=== PATIENT | female | born 1935 | race Caucasian/White ===

== ENCOUNTER 2021-09-19 02:38 | Inpatient (IN) | payer OTHER, BC, SELFPAY ==
[~2021-09-19] VITALS: Ht 170.2 cm; Wt 90.7 kg
[2021-09-19 02:45] VITALS: BP_SYST 161
--- NOTE | 2021-09-19 02:45 | NUR ---
Patient to ER bed 02 to gown for evaluation. Side rails up. Report given to ALEXIA HARRISON
--- NOTE | 2021-09-19 02:48 | NUR ---
Received report from direct support staff member Natalee that new pt in room ED2 for infected knee alceration s/p ground level fall approx 1 month ago. Wound just inferior to Lt knee on anterior surface looks very much infected due to the swellng, redness, discoloration, pus formation, heat to touch. Pt is AAOx4, with good color and temp. VSS, SBP slightly elevated in the 150s-160s, PE wnl, strong and reg pulses x 2, faint distal pulses in LE due to 3+ pitting pedal edema, good cms though. Pt denies any pain, sob, n/v, fv, or discomfort. No s/sx of distress present.
--- NOTE | 2021-09-19 02:55 | NUR ---
Pt connected to bedside monitor, VSS, SBP elevated, EDMD at bedside for eval of pt condition. EDMD confirmed that Lt knee wound is infected, swollen, full of pus and needs to I&Ded by a surgeon. EDMD at this time said that she would be admitted into hospital for I&D of lt knee wound and abx therapy.
[2021-09-19] MEDS ORDERED: VANCOMYCIN HCL 1,000 MG in NS 250 ML IV ONE (03:15)
[2021-09-19] MEDS ORDERED: CLINDAMYCIN 900 mg/50mL D5W 50 ML IV ONE (03:15)
--- NOTE | 2021-09-19 03:15 | NUR ---
Started IV on Rt hand without difficulty using 24g angio , malena blood for lab tests and secured IV site. started IV abx therapy. Pt complaining of back pain due to gurney being too uncomfortable, nose swapped for rapid covid test. Will call for bed after test is resulted from lab. Pt offered pillow and 2 blankets. Sh wcxepted
[2021-09-19] MEDS ORDERED: VANCOMYCIN HCL 1000 MG/VIAL IV ONE (04:08)
[2021-09-19 04:57] LABS: BASOPHILS % (AUTO) 0.6 % (0.0-2.0); EOSINOPHILS % (AUTO) 0.8 % (0.0-4.0); HEMATOCRIT 38.1 % (36-48); HEMOGLOBIN 11.8 g/dL (12.0-16.0); LYMPHOCYTES # (AUTO) 1.1 K/uL (1.0-5.5); LYMPHOCYTES % (AUTO) 22.9 % (20.5-51.5); MEAN CORPUSCULAR HEMOGLOBIN 25 pg (27-31); MEAN CORPUSCULAR HGB CONC 31 % (32-36); MEAN CORPUSCULAR VOLUME 79 fL (79.0-98.0); MONOCYTES # (AUTO) 0.4 K/uL (0.0-1.0); MONOCYTES % (AUTO) 7.6 % (1.7-9.3); NEUTROPHILS # (AUTO) 3.4 K/uL (1.8-7.7); NEUTROPHILS % (AUTO) 68.1 % (40.0-70.0); PLATELET COUNT (AUTO) 183 K/uL (130-430); RED BLOOD CELL COUNT(AUTO) 4.81 MIL/uL (4.2-6.2); RED CELL DISTRIBUTION WIDTH 18.4 % (9.0-15.0)
[2021-09-19 05:03] LABS: ANION GAP 8 (5-15); CALCIUM 8.4 mg/dL (8.4-11.0); CHLORIDE 108 mmol/L (98-107); CREATININE 1.29 mg/dL (0.55-1.30); POTASSIUM 3.6 mmol/L (3.5-5.1); SODIUM SERUM 139 mmol/L (136-145); UREA NITROGEN, BLOOD 28 mg/dL (8-21)
[2021-09-19 05:08] LABS: ALANINE AMINOTRANSFERASE 24 U/L (12-78); ALBUMIN 2.6 g/dL (3.4-4.8); ASPARTATE AMINOTRANSFERASE 30 U/L (10-37)
[2021-09-19 05:21] LABS: GLUCOSE 50 mg/dL (70-99)
[2021-09-19] MEDS: NACL 0.9% 1,000 ML IV SCH ×2 (05:32→17:59)
--- NOTE | 2021-09-19 06:45 | NUR ---
Pt repositioned to pos of comfort. 2-3LO2 NC administered per pt request after complaining of being mildly to moderatly short of breath. Accucheck taken, BG=40, pt offered juice and crackers and apple sauce and jello, however, pt denied and said she will wait for breakfast to be served. Will keep an eye out for breakfast tray.
[2021-09-19] MEDS ORDERED: POTASSIUM CHLORIDE 20 MEQ TAB.PRT.SR PO PRN (07:15)
[2021-09-19] MEDS ORDERED: ONDANSETRON HCL 4 MG/2 ML VIAL IVP PRN (07:15)
[2021-09-19] MEDS ORDERED: DOCUSATE SODIUM 100 MG CAPSULE PO PRN (07:15)
[2021-09-19] MEDS ORDERED: MUPIROCIN 2% TOPICAL OINTMENT 22 GM NS PRN (07:15)
[2021-09-19] MEDS ORDERED: LORazepam 2 MG/ML VIAL IVP PRN (07:15)
[2021-09-19] MEDS ORDERED: ACETAMINOPHEN 325 MG TABLET PO PRN (07:15)
[2021-09-19] MEDS ORDERED: MAGNESIUM SULFATE 50 ML IV PRN (07:15)
--- NOTE | 2021-09-19 07:30 | NUR ---
reported pts. accu check 40, pt. AAOX4, states ussually low in am, apple juice given and breakfast tray ordered, POC for today discussed, pt. has only mild pain to left leg, BLE have ptitting edema unable to palpate pedal pulse, feet warm able to move toes and has good sensation
--- NOTE | 2021-09-19 08:15 | NUR ---
accu check 64
[2021-09-19] MEDS: HEPARIN SODIUM,PORCINE 5,000 UNITS/ML VIAL SUBCUT SCH ×2 (09:00→20:58)
[2021-09-19] MEDS: METOPROLOL TARTRATE 25 MG TABLET PO SCH ×2 (09:30→20:44)
--- NOTE | 2021-09-19 09:33 | NUR ---
heparin held no PTT results
[2021-09-19] MEDS ORDERED: VITD400 PO (10:13)
[2021-09-19] MEDS ORDERED: INSU100V SQ (10:13)
[2021-09-19] MEDS ORDERED: FURO-149 PO (10:13)
[2021-09-19] MEDS ORDERED: SACU1TAB PO (10:13)
[2021-09-19] MEDS ORDERED: INSU3INS10 SQ (10:13)
[2021-09-19] MEDS ORDERED: APIX5TAB PO (10:13)
[2021-09-19] MEDS ORDERED: POTA8TAB66 PO (10:13)
[2021-09-19] MEDS ORDERED: CARV12.548 PO (10:13)
--- NOTE | 2021-09-19 10:13 | NUR ---
Medication reconciliation completed with information provided by Christy. Any prior medication reconciliation on file was reviewed and corrected.
--- NOTE | 2021-09-19 10:40 | NUR ---
Patient will be admitted to care of Dr. Muñoz. Admitted to med surg unit. Will go to room 124C. Belongings list completed. Complete and up to date summary report printed. SBAR report given at bedside with Leland opportunity for questions.
[2021-09-19 11:10] VITALS: BP_SYST 152
--- NOTE | 2021-09-19 11:10 | NUR ---
PATIENT ADMITTED THRU ER, AWAKE, ALERT, ORIENTED X 3 TO NAME, PERSON, AND PLACE. RESPIRATION EVEN AND UNLABORED NO S/S OF ANY ACUTE DISTRESS NOTED. ABLE TO VERBALIZE NEEDS NO C/O ANY PAIN OR DISCOMFORT NOTED. ABDOMEN SOFT AND NON-DISTENDED, POSITIVE BOWEL SOUND X 4 NO N/V OR DIARRHEA NOTED. SKIN WARM AND DRY INTACT, LOWER EXTREMITIES EDEMA 2+ PITTING EDEMA, LEFT LEG SWOLLEN, RED, AND WARM TO TOUCH WITH SCAB OVER THE KNEECAP. WITH BILATERAL PEDAL PULSE PALPABLE.
--- NOTE | 2021-09-19 11:35 | NUR ---
CONSULTATION PAGED/CALLED Reason for Consultation: left knee abscess Person Who was Notified:robby Consulting Physician: dr. carla phillips Electrical Unit Rebuilder Specialty: ID Ordering Physician: jered
[2021-09-19 11:42] VITALS: BP_SYST 146
--- NOTE | 2021-09-19 11:46 | NUR ---
consults- Dr. Magana was aware of consults.
[2021-09-19 15:17] VITALS: BP_SYST 157
--- NOTE | 2021-09-19 18:42 | NUR ---
VS STABLE, AFEBRILE ,NO CHANGE IN LOC. TOLERATED PO WELL WITH FAIR APPETITE. LEFT KNEE REMAIN SWOLLEN W/O ANY DRAINAGE NOTED. CONSULTING MDS, CHAR ADRIAN, SAW THE PATIENT TODAY NO NEW ORDER @ THIS TIME. Addendum: 09/19/21 at 1847 by [employer] geographic information systems director INFECTIOUS DISEASE CONSULT WITH DR. SHIN NOT DR. LUNA HAD NOT SEEN PATIENT BUT WAS NOTIFIED.
--- NOTE | 2021-09-19 19:22 | NUR ---
ENDORSED PATIENT TO PM SHIFT NURSE.
[2021-09-20 00:30] VITALS: BP_SYST 116
[2021-09-20 04:00] VITALS: BP_SYST 139
[2021-09-20 07:28] LABS: BASOPHILS % (AUTO) 0.8 % (0.0-2.0); EOSINOPHILS % (AUTO) 0.1 % (0.0-4.0); HEMATOCRIT 37.5 % (36-48); HEMOGLOBIN 11.7 g/dL (12.0-16.0); LYMPHOCYTES % (AUTO) 21.5 % (20.5-51.5); MEAN CORPUSCULAR HEMOGLOBIN 25 pg (27-31); MEAN CORPUSCULAR HGB CONC 31 % (32-36); MEAN CORPUSCULAR VOLUME 80 fL (79.0-98.0); MONOCYTES # (AUTO) 0.3 K/uL (0.0-1.0); MONOCYTES % (AUTO) 6.2 % (1.7-9.3); NEUTROPHILS # (AUTO) 3.2 K/uL (1.8-7.7); NEUTROPHILS % (AUTO) 71.4 % (40.0-70.0); PLATELET COUNT (AUTO) 172 K/uL (130-430); RED BLOOD CELL COUNT(AUTO) 4.72 MIL/uL (4.2-6.2); WHITE BLOOD COUNT (AUTO) 4.5 K/uL (4.8-10.8)
[2021-09-20 07:33] LABS: INR 1.1 (0.8-1.2); PROTHROMBIN TIME 11.4 SECS (9.5-12.5)
[2021-09-20 07:43] LABS: ANION GAP 11 (5-15); CALCIUM 8.4 mg/dL (8.4-11.0); CHLORIDE 110 mmol/L (98-107); GLUCOSE 114 mg/dL (70-99); POTASSIUM 4.1 mmol/L (3.5-5.1); SODIUM SERUM 143 mmol/L (136-145); UREA NITROGEN, BLOOD 31 mg/dL (8-21)
[2021-09-20 07:47] LABS: ALANINE AMINOTRANSFERASE 22 U/L (12-78); ALBUMIN 2.8 g/dL (3.4-4.8); ASPARTATE AMINOTRANSFERASE 38 U/L (10-37); C-REACTIVE PROTEIN QUANT 3.4 mg/dL (0-0.5); LACTATE DEHYDROGENASE 382 U/L (81-234); TOTAL BILIRUBIN 1.3 mg/dL (0.0-1.0)
[2021-09-20 08:00] VITALS: BP_SYST 129
[2021-09-20 08:53] LABS: ERYTHROCYTE SEDIMENTATION RATE 8 MM/HR (0-20)
[2021-09-20] MEDS: METOPROLOL TARTRATE 25 MG TABLET PO SCH ×2 (09:05→20:45)
[2021-09-20] MEDS: MUPIROCIN 2% TOPICAL OINTMENT 22 GM TP SCH ×2 (09:06→21:00)
[2021-09-20] MEDS: HEPARIN SODIUM,PORCINE 5,000 UNITS/ML VIAL SUBCUT SCH ×2 (09:06→21:02)
--- NOTE | 2021-09-20 10:13 | NUR ---
Nutrition Update : Gaston Scale: 11 noted Pt admitted for Left Knee Abscess. Diet: [facility] BMI: 31.3 kg/m2 RD to follow per nutrition care standards.
[2021-09-20] MEDS ORDERED: VANCOMYCIN HCL 1 GM/NS PREMIX 250 ML IV ONE (11:00)
[2021-09-20 11:27] VITALS: BP_SYST 144
[2021-09-20] MEDS: NACL 0.9% 1,000 ML IV SCH ×2 (13:49→23:09)
[2021-09-20 15:32] VITALS: BP_SYST 126
[2021-09-20 19:26] VITALS: BP_SYST 159
[2021-09-21 03:51] VITALS: BP_SYST 159
[2021-09-21 07:36] LABS: BASOPHILS % (AUTO) 0.2 % (0.0-2.0); EOSINOPHILS % (AUTO) 0.1 % (0.0-4.0); HEMATOCRIT 41.6 % (36-48); HEMOGLOBIN 12.5 g/dL (12.0-16.0); LYMPHOCYTES # (AUTO) 1.2 K/uL (1.0-5.5); LYMPHOCYTES % (AUTO) 22.2 % (20.5-51.5); MEAN CORPUSCULAR HEMOGLOBIN 25 pg (27-31); MEAN CORPUSCULAR HGB CONC 30 % (32-36); MEAN CORPUSCULAR VOLUME 81 fL (79.0-98.0); MONOCYTES # (AUTO) 0.4 K/uL (0.0-1.0); MONOCYTES % (AUTO) 8.4 % (1.7-9.3); NEUTROPHILS # (AUTO) 3.7 K/uL (1.8-7.7); NEUTROPHILS % (AUTO) 69.1 % (40.0-70.0); PLATELET COUNT (AUTO) 189 K/uL (130-430); RED BLOOD CELL COUNT(AUTO) 5.12 MIL/uL (4.2-6.2); RED CELL DISTRIBUTION WIDTH 18.8 % (9.0-15.0); WHITE BLOOD COUNT (AUTO) 5.3 K/uL (4.8-10.8)
[2021-09-21 08:00] VITALS: BP_SYST 165
--- NOTE | 2021-09-21 08:00 | NUR ---
Handoff with ALEXIA Masters. Irineo Rodriguez RN
[2021-09-21 08:05] LABS: ANION GAP 13 (5-15); CALCIUM 8.5 mg/dL (8.4-11.0); CHLORIDE 108 mmol/L (98-107); CREATININE 1.66 mg/dL (0.55-1.30); GLUCOSE 152 mg/dL (70-99); POTASSIUM 4.8 mmol/L (3.5-5.1); SODIUM SERUM 143 mmol/L (136-145); UREA NITROGEN, BLOOD 40 mg/dL (8-21)
[2021-09-21] MEDS: MUPIROCIN 2% TOPICAL OINTMENT 22 GM TP SCH ×2 (09:00→21:00)
[2021-09-21] MEDS: HEPARIN SODIUM,PORCINE 5,000 UNITS/ML VIAL SUBCUT SCH ×2 (09:00→20:54)
[2021-09-21] MEDS: METOPROLOL TARTRATE 25 MG TABLET PO SCH ×2 (09:00→20:52)
[2021-09-21] MEDS: DECADRON 4 MG TABLET PO SCH (10:00)
--- NOTE | 2021-09-21 10:25 | NUR ---
GAVE PICC LINE ORDER TO ALEJANDRO, NURSING TRAINING REPRESENTATIVE
[2021-09-21] MEDS ORDERED: VANCOMYCIN HCL 1,000 MG in NS 250 ML IV SCH (11:00)
[2021-09-21 12:00] VITALS: BP_SYST 149
[2021-09-21] MEDS: NACL 0.9% 1,000 ML IV SCH (13:27)
[2021-09-21 19:36] VITALS: BP_SYST 82
[2021-09-21] MEDS: INSULIN REGULAR, HUMAN 100 UNITS/ML, 10 ML VIAL (humuLIN R) SUBCUT PRN (21:12)
[2021-09-22 00:39] VITALS: BP_SYST 143
[2021-09-22] MEDS ORDERED: AZITHROMYCIN 250 MG in NS 250 ML IV SCH (02:00)
[2021-09-22] MEDS ORDERED: AZITHROMYCIN 500 MG in NS 250 ML IV ONE (02:00)
[2021-09-22] MEDS: NACL 0.9% 1,000 ML IV SCH (03:45)
[2021-09-22] MEDS ORDERED: AZITHROMYCIN 500 MG/VIAL (ZITHROMAX) IV ONE (04:38)
[2021-09-22] MEDS ORDERED: cefTRIAXone 1 GM VIAL ONE (04:38)
--- NOTE | 2021-09-22 05:05 | NUR ---
PATIENT REMOVED 20 GAUGE PERIPHERAL IV ACCESS PLACED BY RANCHO PICC LINE NURSE, UNABLE TO ESTABLISH PICC LINE OR MIDLINE ON LEFT UPPER EXTREMITY. JAZ SORIANO RN
[2021-09-22] MEDS: INSULIN REGULAR, HUMAN 100 UNITS/ML, 10 ML VIAL (humuLIN R) SUBCUT PRN ×2 (06:16→22:02)
--- NOTE | 2021-09-22 07:33 | NUR ---
Handoff with ALEXIA Masters. Irineo Rodriguez RN
[2021-09-22] MEDS: CHOLECALCIFEROL (VITAMIN D3) 2,000 UNIT TABLET PO SCH (09:00)
[2021-09-22] MEDS: ASCORBIC ACID 500 MG TABLET PO SCH (09:00)
--- NOTE | 2021-09-22 09:39 | NUR ---
CONSULTATION: REASON FOR CONSULT: RENAL INSUFF CONSULTING PHYSICIAN: Presley PATHAK ORDERED BY: Jimy GUTIERREZ SPOKE WITH [facility] [phone]
[2021-09-22 12:44] VITALS: BP_SYST 130
[2021-09-22 16:30] VITALS: BP_SYST 132
--- NOTE | 2021-09-22 20:00 | NUR ---
SHIFT NOTE REC'D PT LYING IN BED, AOX1, CONFUSED/FORGETFUL, NO DISTRESS OR DISCOMFORT NOTED, BREATHING EVEN AND UNLABORED,6L NASAL CANNULA SATURATING WELL, PT DENIES PAIN, BED IN LOWEST POSITION,CALL LIGHT WITHIN IMMEDIATE REACH, BRP WITH ASSIST, BED ALARM ON, SIDE RAILS UP X2, REPOSITIONED PER COMFORT, WILL CONTINUE TO MONITOR.
[2021-09-22 20:02] VITALS: BP_SYST 158
[2021-09-22] MEDS: METOPROLOL TARTRATE 25 MG TABLET PO SCH (21:40)
[2021-09-22] MEDS: ACETAMINOPHEN 325 MG TABLET PO PRN (21:40)
[2021-09-22] MEDS: HEPARIN SODIUM,PORCINE 5,000 UNITS/ML VIAL SUBCUT SCH (21:41)
[2021-09-22] MEDS: MUPIROCIN 2% TOPICAL OINTMENT 22 GM TP SCH (21:42)
[2021-09-22] MEDS: AZITHROMYCIN 250 MG in NS 250 ML IV SCH (22:03)
[2021-09-23] VITALS: BP_SYST 94
--- NOTE | 2021-09-23 | NUR ---
NO CHANGES NOTED FROM PREVIOUS ASSESSMENT, WILL CONTINUE TO MONITOR.
--- NOTE | 2021-09-23 04:47 | NUR ---
NO S/S OF DISTRESS OR DISCOMFORT NOTED, BREATHING EVEN AND UNLABORED, 6L NC SATURATING WELL, PT STILL ON ISOLATION ROOM,SIDE RAILS UPX2, BED IN LOWEST POSITION,WILL CONTINUE TO MONITOR.
--- NOTE | 2021-09-23 07:22 | NUR ---
SHIFT REPORT REPORT GIVEN TO ALEXIA AGUAYO FOR CONTINUITY OF CARE, ALL QUESTIONS WERE ANSWERED AND RN VERBALIZED UNDERSTANDING.
--- NOTE | 2021-09-23 08:00 | NUR ---
LOW O2 SAT PATIENT CONFUSED, LOW O2 SAT ON 70'S, CURRENTLY ON OXIMIZER AT 10L, WITH DIFFICULTY OF BREATHING. PLACED ON 100%NRB STILL WITH LOW O2 SAT, PLACED ON BIPAP 100% O2 SAT ON 97%. PLACED ON COMFORTABLE POSITION.
[2021-09-23 08:12] LABS: ANION GAP 16 (5-15); C-REACTIVE PROTEIN QUANT 4.3 mg/dL (0-0.5); CALCIUM 8.9 mg/dL (8.4-11.0); CHLORIDE 107 mmol/L (98-107); CREATININE 1.98 mg/dL (0.55-1.30); GLUCOSE 125 mg/dL (70-99); POTASSIUM 5.3 mmol/L (3.5-5.1); SODIUM SERUM 140 mmol/L (136-145); UREA NITROGEN, BLOOD 59 mg/dL (8-21)
--- NOTE | 2021-09-23 08:15 | NUR ---
LETHARGIC, SHORTNESS OF BREATH ON O2 VIA 100% NON-REBREATHER, O2 SATURATION IN HIGH 80'S, ALEXIA PETTIT @ BEDSIDE WITH PATIENT. UNABLE TO VERBALIZE NEEDS, ALL NEED ASSESS Q HOURLY AND PRN. ABDOMEN SOFT AND NON-DISTENDED, POSITIVE BOWEL SOUND X 4 NO N/V OR DIARRHEA NOTED. SKIN WARM AND DRY WITH NEETA-ANAL REDNESS, LEFT LEG ABCESS, SWELLING, WARM TO TOUCH. WILL CONTINUE TO REASSESS PATIENT PRN.
[2021-09-23] MEDS: HEPARIN SODIUM,PORCINE 5,000 UNITS/ML VIAL SUBCUT SCH ×2 (09:00→21:52)
[2021-09-23] MEDS: MUPIROCIN 2% TOPICAL OINTMENT 22 GM TP SCH ×2 (09:00→21:39)
--- NOTE | 2021-09-23 09:00 | NUR ---
NOTIFED DAUGHTER RE-CHANGE OF CONDITION SPOKE TO MILADYS DAUGHTER OF PATIENT MADE AWARE THAT PATIENT REQUIRES A BIPAP AND BREATHING IS NOT GETTING BETTER. DAUGHTER DOESN'T WANT INTUBATION, WANTS COMFORT MEASURES ONLY. DOCTOR JAXON AND DR ISABEL MADE AWARE, DR ISABEL SPOKE TO THE DAUGHTER RE CODE STATUS.
[2021-09-23 09:51] LABS: BASOPHILS % (AUTO) 0.3 % (0.0-2.0); HEMOGLOBIN 12.6 g/dL (12.0-16.0); LYMPHOCYTES # (AUTO) 0.5 K/uL (1.0-5.5); LYMPHOCYTES % (AUTO) 10.3 % (20.5-51.5); MEAN CORPUSCULAR HEMOGLOBIN 24 pg (27-31); MEAN CORPUSCULAR HGB CONC 29 % (32-36); MEAN CORPUSCULAR VOLUME 83 fL (79.0-98.0); MONOCYTES # (AUTO) 0.4 K/uL (0.0-1.0); MONOCYTES % (AUTO) 8.4 % (1.7-9.3); NEUTROPHILS # (AUTO) 4.1 K/uL (1.8-7.7); PLATELET COUNT (AUTO) 181 K/uL (130-430); RED CELL DISTRIBUTION WIDTH 19.2 % (9.0-15.0)
[2021-09-23 12:00] VITALS: BP_SYST 142
[2021-09-23] MEDS: INSULIN REGULAR, HUMAN 100 UNITS/ML, 10 ML VIAL (humuLIN R) SUBCUT PRN (12:39)
[2021-09-23 13:23] LABS: ERYTHROCYTE SEDIMENTATION RATE 4 MM/HR (0-20)
--- NOTE | 2021-09-23 15:07 | NUR ---
O2 SATURATION REMAINED IN THE UPPER 90S WITH O2 VIA BIPAP @ 40%. INSERTED NG-TUBE FOR FEEDING AND ALSO MEDICATION. WILL START ONCE PLACEMENT IS VERIFIED BY CHEST X-RAY. PATIENT IS NOW DNR, FOR COMFORT MEASURE PER DAUGHTER MILADYS CONFERRED WITH ALEXIA PETTIT
--- NOTE | 2021-09-23 15:13 | NUR ---
RESTRAINTS PATIENT NEEDS NGT/BIPAP, TRYING TO PULLED MEDICAL LINES, CONFUSED AT THIS TIME. DAUGHTER AGREED FOR JOHANA. WRIIST RESTRAINTS TO PREVENT PULLING OUT THE MEDICAL LINES.
[2021-09-23 16:59] VITALS: BP_SYST 120
[2021-09-23] MEDS: CHOLECALCIFEROL (VITAMIN D3) 2,000 UNIT TABLET PO SCH (18:21)
[2021-09-23] MEDS: ASCORBIC ACID 500 MG TABLET PO SCH (18:21)
[2021-09-23] MEDS: METOPROLOL TARTRATE 25 MG TABLET PO SCH ×2 (18:21→21:53)
[2021-09-23] MEDS: DECADRON 4 MG TABLET PO SCH (18:22)
--- NOTE | 2021-09-23 18:36 | NUR ---
ABLE TO INSERT NG-TUBE FOR FEEDING AND MEDS, PLACEMENT WAS VERIFIED BY CHEST X-RAY, STOMACH CONTENTS AND AUSCULTATION AND DOUBLE CHECK BY ALEXIA PETTIT BEFORE START ADMINISTER MEDS AND FEEDING. PATIENT IS NOW MORE AWAKE AND AROUSABLE WILL ENDORSED TO PM SHIFT NURSE.
[2021-09-23 20:00] VITALS: BP_SYST 156
--- NOTE | 2021-09-23 20:00 | NUR ---
SHIFT NOTE REC'D PT LYING IN BED, AOX2, PT WAS MORE ALERT, ON BIPAP I/E 07/31, FIO2 40%, NO DISTRESS OR DISCOMFORT NOTED, BREATHING EVEN AND UNLABORED, NOTED PT ON 2PTS RESTRAINTS TO AVOID PULLING MEDICAL DEVICES, NGT LEFT NARES INFUSING GLUCERNA 1.2CAL AT 30CC/HR H2O FLUSH OF 100CC Q4HRS, NO RESIDUAL ASPIRATED, PT TOLERATES FEEDING WELL, BED IN LOWEST POSITION,CALL LIGHT WITHIN IMMEDIATE REACH,HOB ELEVATED, SIDE RAILS UP X4, REPOSITIONED PER COMFORT, WILL CONTINUE TO MONITOR.
[2021-09-23] MEDS: AZITHROMYCIN 250 MG in NS 250 ML IV SCH (21:24)
[2021-09-23] MEDS: NACL 0.9% 1,000 ML IV SCH (21:40)
--- NOTE | 2021-09-24 | NUR ---
NO CHANGES NOTED FROM PREVIOUS ASSESSMENT, NO RESIDUAL ASPIRATED, PT TOLERATING TUBE FEEDING WELL, REPOSITIONED PER COMFORT, WILL CONTINUE TO MONITOR.
[2021-09-24 01:00] VITALS: BP_SYST 159
[2021-09-24] MEDS: ACETAMINOPHEN 325 MG TABLET PO PRN (02:52)
[2021-09-24] MEDS: ZOLPIDEM TARTRATE 5 MG TABLET PO PRN ×2 (02:52→23:04)
--- NOTE | 2021-09-24 04:30 | NUR ---
NO S/S OF DISTRESS OR DISCOMFORT NOTED, BREATHING EVEN AND UNLABORED, PATIENT SATURATING GOOD ON BIPAP WITH FIO2 OF 40%, PT STILL ON ISOLATION ROOM,SIDE RAILS UPX4, BED IN LOWEST POSITION, CALL LIGHT WITHIN IMMEDIATE REACH, WILL CONTINUE TO MONITOR.
--- NOTE | 2021-09-24 05:56 | NUR ---
AM CARE RENDERED TO PATIENT, PT TOLERATED TREATMENT WELL, NO DISTRESS OR DISCOMFORT NOTED, ORAL CARE DONE, PARTIAL BED BATH GIVEN, HOB ELEVATED 30 DEGREES, PT STILL ON JOHANA. SOFT WRIST RESTRAINTS, SIDE RAILS UPX4, BED IN LOWEST POSITION, WILL CONTINUE TO MONITOR.
--- NOTE | 2021-09-24 07:42 | NUR ---
SHIFT REPORT REPORT GIVEN TO ALEXIA ORTIZ FOR CONTINUITY OF CARE, ALL QUESTIONS WERE ANSWERED AND RN VERBALIZED UNDERSTANDING.
[2021-09-24 08:30] VITALS: BP_SYST 161
[2021-09-24 08:41] LABS: BASOPHILS % (AUTO) 0.2 % (0.0-2.0); HEMATOCRIT 43.9 % (36-48); HEMOGLOBIN 13.3 g/dL (12.0-16.0); LYMPHOCYTES # (AUTO) 0.4 K/uL (1.0-5.5); LYMPHOCYTES % (AUTO) 8.3 % (20.5-51.5); MEAN CORPUSCULAR HEMOGLOBIN 25 pg (27-31); MEAN CORPUSCULAR HGB CONC 30 % (32-36); MEAN CORPUSCULAR VOLUME 81 fL (79.0-98.0); MONOCYTES # (AUTO) 0.2 K/uL (0.0-1.0); MONOCYTES % (AUTO) 4.1 % (1.7-9.3); NEUTROPHILS # (AUTO) 4.5 K/uL (1.8-7.7); NEUTROPHILS % (AUTO) 87.4 % (40.0-70.0); PLATELET COUNT (AUTO) 186 K/uL (130-430); RED BLOOD CELL COUNT(AUTO) 5.41 MIL/uL (4.2-6.2); RED CELL DISTRIBUTION WIDTH 19.2 % (9.0-15.0); WHITE BLOOD COUNT (AUTO) 5.1 K/uL (4.8-10.8)
--- NOTE | 2021-09-24 08:45 | NUR ---
Rec'd pt laying in bed at 0700, lethargic, restless in bed, wrist restraints noted. Ptdoes not appear to be in pain. IV noted- infusing NS@70ml/hr. CSMW- pt cool to touch and pale. Edema noted to R arm and leg + L leg- pitting. Lungs- diminished R>L, crackles noted. Pt does not appear to be coughing. RT in room during assessment- changed to ventimask 12L, 40%- pt saturating at 99%. BSx4. Void- inc. No N+V noted. NG noted- meds flushed through well, tube feed infusing @30ml/hr. LLE swelling and abscess noted to knee area, brusing noted to R arm. Turn Q2H. VSS. Assist with all ADLs. Will continue to monitor.
[2021-09-24] MEDS: ASCORBIC ACID 500 MG TABLET PO SCH (09:05)
[2021-09-24] MEDS: DECADRON 4 MG TABLET PO SCH (09:05)
[2021-09-24] MEDS: CHOLECALCIFEROL (VITAMIN D3) 2,000 UNIT TABLET PO SCH (09:05)
[2021-09-24] MEDS: METOPROLOL TARTRATE 25 MG TABLET PO SCH ×2 (09:07→23:04)
[2021-09-24] MEDS: MUPIROCIN 2% TOPICAL OINTMENT 22 GM TP SCH ×2 (09:07→21:00)
[2021-09-24] MEDS: HEPARIN SODIUM,PORCINE 5,000 UNITS/ML VIAL SUBCUT SCH ×2 (09:08→22:34)
[2021-09-24 11:28] VITALS: BP_SYST 157
[2021-09-24] MEDS: INSULIN REGULAR, HUMAN 100 UNITS/ML, 10 ML VIAL (humuLIN R) SUBCUT PRN ×2 (12:26→18:12)
[2021-09-24] MEDS: NACL 0.9% 1,000 ML IV SCH (12:29)
[2021-09-24 12:54] LABS: ANION GAP 13 (5-15); CALCIUM 8.6 mg/dL (8.4-11.0); CHLORIDE 111 mmol/L (98-107); CREATININE 1.71 mg/dL (0.55-1.30); GLUCOSE 241 mg/dL (70-99); POTASSIUM 5.2 mmol/L (3.5-5.1); SODIUM SERUM 144 mmol/L (136-145); UREA NITROGEN, BLOOD 61 mg/dL (8-21)
[2021-09-24 13:05] LABS: C-REACTIVE PROTEIN QUANT 4.5 mg/dL (0-0.5)
[2021-09-24 13:22] LABS: ERYTHROCYTE SEDIMENTATION RATE 4 MM/HR (0-20)
[2021-09-24 14:39] VITALS: BP_SYST 157
[2021-09-24 15:18] VITALS: BP_SYST 153
--- NOTE | 2021-09-24 18:26 | NUR ---
Pt resting in bed. Does not appear to in pain. O2 insitu. IVF infusing. NG tube feed infusing. No voiced concerns. Will continue to monitor.
[2021-09-24 22:00] VITALS: BP_SYST 155
--- NOTE | 2021-09-24 22:15 | NUR ---
pt was able to remove ng tube even while on restraints. New ng tube inserted. cxr preformed. ng tube in proper positon. tube feeding reconnected. restraints intact. will continue to monitor.
[2021-09-24] MEDS: AZITHROMYCIN 250 MG in NS 250 ML IV SCH (22:30)
[2021-09-25 00:13] VITALS: BP_SYST 157
[2021-09-25] MEDS: INSULIN REGULAR, HUMAN 100 UNITS/ML, 10 ML VIAL (humuLIN R) SUBCUT PRN ×4 (00:18→22:56)
[2021-09-25] MEDS: NACL 0.9% 1,000 ML IV SCH ×2 (02:57→17:33)
[2021-09-25 08:30] VITALS: BP_SYST 132
--- NOTE | 2021-09-25 08:30 | NUR ---
Rec'd pt laying in bed at 0700, lethargic, restless in bed, wrist restraints noted. Pt does not appear to be in pain. IV noted- infusing NS@70ml/hr. CSMW- pt cool to touch and pale. Edema noted to bilat arms and legs- pitting. Lungs- diminished R>L, crackles noted. Pt does not appear to be coughing. ventimask 12L, 40%- pt saturating at 100%. BSx4. Void- inc. No N+V noted. NG noted- meds flushed through well, tube feed infusing @30ml/hr. LLE swelling and abscess noted to knee area, bruising noted to R arm. Turn Q2H. VSS. Assist with all ADLs. Will continue to monitor.
[2021-09-25] MEDS: ASCORBIC ACID 500 MG TABLET PO SCH (08:41)
[2021-09-25] MEDS: CHOLECALCIFEROL (VITAMIN D3) 2,000 UNIT TABLET PO SCH (08:41)
[2021-09-25] MEDS: DECADRON 4 MG TABLET PO SCH (08:42)
[2021-09-25] MEDS: MUPIROCIN 2% TOPICAL OINTMENT 22 GM TP SCH ×2 (08:42→22:20)
[2021-09-25] MEDS: METOPROLOL TARTRATE 25 MG TABLET PO SCH ×2 (08:42→22:20)
[2021-09-25] MEDS: HEPARIN SODIUM,PORCINE 5,000 UNITS/ML VIAL SUBCUT SCH ×2 (08:43→22:23)
[2021-09-25 11:29] VITALS: BP_SYST 136
[2021-09-25 16:09] VITALS: BP_SYST 130
--- NOTE | 2021-09-25 18:04 | NUR ---
IV infiltrated. Consent in chart already from Sep 21 for PICC line placement- unsuccessful- order given to housekeeping coordinator for this to retry this evening.
--- NOTE | 2021-09-25 18:05 | NUR ---
pt resting in bed. Ventimask in place- 12L, 40%- 95% saturation. No voiced concerns. Awaiting PICC line. Insulin given for blood sugar of 183. Tube feed line and bottle changed to new set. Pt turned and changed by [employer]'s. Will continue to monitor.
--- NOTE | 2021-09-25 19:30 | NUR ---
pt does not have iv access. picc nurse to try and insert line in am.
[2021-09-25 20:49] LABS: HEMATOCRIT 44.2 % (36-48); HEMOGLOBIN 12.8 g/dL (12.0-16.0); MEAN CORPUSCULAR HEMOGLOBIN 24 pg (27-31); MEAN CORPUSCULAR HGB CONC 29 % (32-36); MEAN CORPUSCULAR VOLUME 83 fL (79.0-98.0); PLATELET COUNT (AUTO) 173 K/uL (130-430); RED CELL DISTRIBUTION WIDTH 20.1 % (9.0-15.0); WHITE BLOOD COUNT (AUTO) 11.4 K/uL (4.8-10.8)
[2021-09-25 20:53] LABS: ANION GAP 12 (5-15); CHLORIDE 112 mmol/L (98-107); CREATININE 1.51 mg/dL (0.55-1.30); GLUCOSE 225 mg/dL (70-99); POTASSIUM 5.4 mmol/L (3.5-5.1); SODIUM SERUM 147 mmol/L (136-145); UREA NITROGEN, BLOOD 62 mg/dL (8-21)
[2021-09-25] MEDS: AZITHROMYCIN 250 MG in NS 250 ML IV SCH (21:00)
[2021-09-25 21:41] LABS: BAND % (MANUAL) 1 % (0-6); BASOPHILS % (MANUAL) 0 % (0-2); EOSINOPHILS % (MANUAL) 0 % (0-7); LYMPHOCYTES % (MANUAL) 1 % (20-46); MONOCYTES % (MANUAL) 2 % (0-11)
[2021-09-25 22:00] VITALS: BP_SYST 145
[2021-09-25] MEDS: CLINDAMYCIN 600 MG in D5W 50 ML IV SCH (22:00)
[2021-09-25] MEDS: ZOLPIDEM TARTRATE 5 MG TABLET PO PRN (22:20)
[2021-09-26 00:11] VITALS: BP_SYST 150
--- NOTE | 2021-09-26 05:41 | NUR ---
Nutrition F/U Admitting Diagnosis: L knee abscess, mild malnutrition Medical History Comment: Per EMR review, pt w/ PMH of L knee cellulitis, DM and HTN. 09/25 notes: CHF, CAREN 2/2 VMN SARS-CoV-2 Ag (Rapid) Positive 09/19, unvaccinated status. Subjective Information: Per EMR review, per pts daughters request, pt is now DNR/DNI status, on venti mask and tube feeding via NGT was started on 09/23. BM 09/25 x1, pt is in restraints to prevent him from pulling out lines and tubes. Pt has pulled out the NGT and has been reinserted. CXR on 09/25 showed: NGT in the stomach, and an increased hazy bilateral infiltrates consistent w/ worsening CHF. Gaston scale: 13, wound to lower leg per curriculum and assessment director and 2+ pitting edema to BLE. EN rate: 30ml (09/24); GRV: 30ml (09/24). RD bedside visit was deferred d/t COVID isolation precaution. RD s/w pt's primary RN who reported that pt is on an oximizer and RN to double check EN feeding and GRV. Dextrose has been discontinued per RN report. Current EN regimen does not meet estimated calorie and protein needs and an increase in EN infusion rate is warranted as well as modification to a more renal friendly formula. Note: late charting-RD s/w pt's RN on 09/25. Current Diet Order/Nutrition Support: Glucerna 1.2 at 30ml/hr, FWF 100ml via NGT Provides: 864 kcal, 43gm protein and 580ml Meets: 47% of lower end of estimated calorie needs and 58% of upper end of estimated protein. Pertinent Medications: Vit D, Vit C, Zinc, Decadron, Lopressor, Colace, Insulin, Heparin Pertinent Labs: 09/25 BG 225 H, POC BG 223 H, BUN 62H, Cr 1.51 H, Na 147H, K 5.4H Height (Feet) 5 feet Height (Inches) 7.00 inches Weight (Pounds) 200 pounds (09/21) -no changes Weight (Calculated Kilograms) 90.996945 kilograms Patient Weight 90.718 kg Body Mass Index 31.32 kg/m2 %IBW 135 Sarita/Adjusted Body Weight 151#/69kg Estimated Energy Expenditure (kcals/day) 0653-7035 kcals/day (30-35 kcal/kg IBW d/t wounds) Estimated Protein Required (g/day) 73-92 g/day (1.2-1.5 g/kg IBW d/t wounds) NEW Estimated Fluid Required (l/day) per MD (CHF) Problem/Etiology/Signs/Symptoms Increased nutritional needs R/T increased physiological demands AEB wound healing/L knee abscess. (*ongoing) Altered nutrition related labs r/t endocrine and renal dysfunction AEB elevated BG, SCre, and electrolytes. (*new) Expected Outcomes/Goals Monitor EN tolerance and intake w/ goal of pt meeting more than 75% of estimated nutritional needs, labs trending WNL, normal GI function, skin integrity/wt maintenance. Dietitian Recommendations Recommend: modify EN formula to better meet needs. Nepro at 40ml/hr, FWF per physician via NGT Provides: 1728 kcal, 78gm protein and 698ml fluids daily. Meets: 94% of lower end of estimated calorie needs and 84% of upper end of estimated protein needs. Follow Up High Risk: F/U in 2-3days
--- NOTE | 2021-09-26 05:51 | NUR ---
Dietitian Recommendations Recommend: modify EN formula to better meet needs. Nepro at 40ml/hr, FWF per physician via NGT Provides: 1728 kcal, 78gm protein and 698ml fluids daily. Meets: 94% of lower end of estimated calorie needs and 84% of upper end of estimated protein needs. Please see Nutrition F/U note for details.
[2021-09-26] MEDS: CLINDAMYCIN 600 MG in D5W 50 ML IV SCH ×3 (06:00→22:00)
[2021-09-26] MEDS: INSULIN REGULAR, HUMAN 100 UNITS/ML, 10 ML VIAL (humuLIN R) SUBCUT PRN ×4 (06:24→22:52)
[2021-09-26 07:16] LABS: BASOPHILS % (AUTO) 0.1 % (0.0-2.0); HEMOGLOBIN 12.1 g/dL (12.0-16.0); LYMPHOCYTES # (AUTO) 0.2 K/uL (1.0-5.5); LYMPHOCYTES % (AUTO) 3.3 % (20.5-51.5); MEAN CORPUSCULAR HEMOGLOBIN 25 pg (27-31); MEAN CORPUSCULAR HGB CONC 30 % (32-36); MEAN CORPUSCULAR VOLUME 80 fL (79.0-98.0); MONOCYTES # (AUTO) 0.5 K/uL (0.0-1.0); MONOCYTES % (AUTO) 6.8 % (1.7-9.3); NEUTROPHILS # (AUTO) 6.5 K/uL (1.8-7.7); NEUTROPHILS % (AUTO) 89.8 % (40.0-70.0); PLATELET COUNT (AUTO) 130 K/uL (130-430); RED BLOOD CELL COUNT(AUTO) 4.97 MIL/uL (4.2-6.2); RED CELL DISTRIBUTION WIDTH 18.8 % (9.0-15.0)
[2021-09-26] MEDS: NACL 0.9% 1,000 ML IV SCH ×2 (07:51→22:09)
[2021-09-26 07:55] LABS: ALANINE AMINOTRANSFERASE 296 U/L (12-78); ALBUMIN 2.6 g/dL (3.4-4.8); ANION GAP 9 (5-15); ASPARTATE AMINOTRANSFERASE 141 U/L (10-37); C-REACTIVE PROTEIN QUANT 1.7 mg/dL (0-0.5); CALCIUM 8.9 mg/dL (8.4-11.0); CHLORIDE 114 mmol/L (98-107); CREATININE 1.68 mg/dL (0.55-1.30); GLUCOSE 244 mg/dL (70-99); POTASSIUM 5.2 mmol/L (3.5-5.1); SODIUM SERUM 145 mmol/L (136-145); TOTAL BILIRUBIN 0.9 mg/dL (0.0-1.0); UREA NITROGEN, BLOOD 67 mg/dL (8-21)
--- NOTE | 2021-09-26 08:48 | NUR ---
CONSULT CARDIOLOGY CHF FR BAKER [phone] S/W JOSE EXCHANGE
[2021-09-26] MEDS: DECADRON 4 MG TABLET PO SCH (10:14)
[2021-09-26] MEDS: HEPARIN SODIUM,PORCINE 5,000 UNITS/ML VIAL SUBCUT SCH ×2 (10:14→22:49)
[2021-09-26] MEDS: METOPROLOL TARTRATE 25 MG TABLET PO SCH ×2 (10:15→22:47)
[2021-09-26] MEDS: ASCORBIC ACID 500 MG TABLET PO SCH (10:15)
[2021-09-26] MEDS: CHOLECALCIFEROL (VITAMIN D3) 2,000 UNIT TABLET PO SCH (10:16)
[2021-09-26] MEDS: MUPIROCIN 2% TOPICAL OINTMENT 22 GM TP SCH ×2 (10:17→21:00)
[2021-09-26 11:00] LABS: ERYTHROCYTE SEDIMENTATION RATE 2 MM/HR (0-20)
[2021-09-26 11:14] LABS: WHITE BLOOD COUNT (AUTO) 7.3 K/uL (4.8-10.8)
[2021-09-26 11:25] VITALS: BP_SYST 118
--- NOTE | 2021-09-26 13:48 | NUR ---
CONSULTATION PAGED REASON FOR CONSULTATION:CENTRAL LINE PLACEMENT WAS CONSULT CALED?Y PERSON WHO WAS NOTIFIED:LOU CONSULTING PHYSICIAN:SHANELLE NORRIS SIZING MACHINE AND DRIER OPERATOR SPECIALTY:SURGEON SIZING MACHINE AND DRIER OPERATOR PHONE NUMBER:[phone] REQUESTING PHYSICIAN:DR.SINGHZUNI COMPREHENSIVE HEALTH CENTERSHREYAS
--- NOTE | 2021-09-26 15:11 | NUR ---
SPOKE WITH DR LIPSCOMB PER HE DOES NOT INSERT CENTRAL LINES DR GUTIERREZ NOTIFIED, NEW ORDERS RECEIVED
[2021-09-26 16:01] VITALS: BP_SYST 152
[2021-09-26] MEDS: CLINDAMYCIN HCL 150 MG CAPSULE PO SCH ×2 (18:29→23:05)
--- NOTE | 2021-09-26 19:00 | NUR ---
PT CONFUSED,RESTLESS,TRIED TO PULL OUT TUBING,NGT IN RIGHT NARE ON TUBE FEEDING GLUCERNA 1.2 @ 30CC PER HR VIA NGT.NO RESIDUAL PER NGT.RANCHO PICC LINE NURSE CAME THIS AM AND UNABLE TO INSERT PICC LINE D/T HARD STICK, AWARED OBTAINED ORDER FOR SURGICAL CONSULT TO PLACE CENTRAL LINE, CAME AND NOTIFIED OF PT NO IV ACCESS,OBTAINED ORDER FOR ANTIBIOTIC CHANGED TO PO ROUTE.TOTAL CARE PROVIDED,RESTRAINTS ON BOTH WRISTS TO PREVENT PT TO PULLING OUT TUBINGS. SAFETY MAINTAINED.CONTINUE TO MONITOR PT.REPORT ENDORSED TO DIRECTOR EMERGENCY DEPARTMENT NURSE.
--- NOTE | 2021-09-26 20:00 | NUR ---
PT HANDS BOTH SWOLLEN AND RED. BOTH HANDS WERE ELEVATED. RESTRAINTS BOTH RECHECKED AND ASSESSED
[2021-09-26] MEDS: AMOXICILLIN/CLAVULANATE POTASSIUM 250 MG/5 ML, 75 ML BTL PO SCH (21:00)
[2021-09-26] MEDS: AZITHROMYCIN 250 MG in NS 250 ML IV SCH (21:00)
[2021-09-26] MEDS: ZOLPIDEM TARTRATE 5 MG TABLET PO PRN (22:46)
[2021-09-26] MEDS: SACUBITRIL/VALSARTAN 24 MG-26 MG 1 TABLET PO SCH (22:47)
[2021-09-27 01:09] VITALS: BP_SYST 146
[2021-09-27] MEDS: CLINDAMYCIN 600 MG in D5W 50 ML IV SCH ×2 (06:00→14:00)
[2021-09-27] MEDS: CLINDAMYCIN HCL 150 MG CAPSULE PO SCH ×3 (06:21→18:17)
[2021-09-27] MEDS: INSULIN REGULAR, HUMAN 100 UNITS/ML, 10 ML VIAL (humuLIN R) SUBCUT PRN ×3 (06:37→18:19)
[2021-09-27 07:15] LABS: BASOPHILS % (AUTO) 0.1 % (0.0-2.0); HEMATOCRIT 39.8 % (36-48); LYMPHOCYTES # (AUTO) 0.4 K/uL (1.0-5.5); MEAN CORPUSCULAR HEMOGLOBIN 25 pg (27-31); MEAN CORPUSCULAR HGB CONC 30 % (32-36); MEAN CORPUSCULAR VOLUME 82 fL (79.0-98.0); MONOCYTES # (AUTO) 0.5 K/uL (0.0-1.0); MONOCYTES % (AUTO) 8.1 % (1.7-9.3); NEUTROPHILS # (AUTO) 5.5 K/uL (1.8-7.7); NEUTROPHILS % (AUTO) 85.8 % (40.0-70.0); PLATELET COUNT (AUTO) 118 K/uL (130-430); RED BLOOD CELL COUNT(AUTO) 4.88 MIL/uL (4.2-6.2); RED CELL DISTRIBUTION WIDTH 19.1 % (9.0-15.0); WHITE BLOOD COUNT (AUTO) 6.4 K/uL (4.8-10.8)
--- NOTE | 2021-09-27 07:31 | NUR ---
ENDORSED CARE TO DAY RN. RN MADE AWARE OF HANDS SWOLLEN AND RED. PT IN BED RESTING
--- NOTE | 2021-09-27 07:37 | NUR ---
CONSULTATION PAGED REASON FOR CONSULTATION:MID LINE PLACEMENT WAS CONSULT CALED?Y PERSON WHO WAS NOTIFIED:[facility] INSURANCE UNDERWRITER CONSULTING PHYSICIAN:GODWIN LEVY CLOTH WORKER SPECIALTY:RADIOLOGY CLOTH WORKER PHONE NUMBER:[phone] REQUESTING PHYSICIAN:CHELSEA REGALADO
--- NOTE | 2021-09-27 07:41 | NUR ---
CONSULTATION PAGED REASON FOR CONSULTATION:CENTRAL LINE PLACEMENT WAS CONSULT CALED?YY PERSON WHO WAS NOTIFIED:EARNEST HOLLAND CONSULTING PHYSICIAN:NEERU LANDEROS JARED BUTTONHOLE MAKER HAND SPECIALTY:SURGEON BUTTONHOLE MAKER HAND PHONE NUMBER:[phone] REQUESTING PHYSICIAN:DR.[facility]
[2021-09-27 08:00] VITALS: BP_SYST 152
[2021-09-27] MEDS: MUPIROCIN 2% TOPICAL OINTMENT 22 GM TP SCH (09:00)
[2021-09-27 09:22] LABS: ALANINE AMINOTRANSFERASE 233 U/L (12-78); ALBUMIN 2.6 g/dL (3.4-4.8); ANION GAP 9 (5-15); ASPARTATE AMINOTRANSFERASE 77 U/L (10-37); C-REACTIVE PROTEIN QUANT 1.3 mg/dL (0-0.5); CALCIUM 9.2 mg/dL (8.4-11.0); CHLORIDE 115 mmol/L (98-107); CREATININE 1.84 mg/dL (0.55-1.30); GLUCOSE 272 mg/dL (70-99); PHOSPHORUS 4.5 mg/dL (2.7-4.5); SODIUM SERUM 143 mmol/L (136-145); UREA NITROGEN, BLOOD 74 mg/dL (8-21)
[2021-09-27] MEDS: AMOXICILLIN/CLAVULANATE POTASSIUM 250 MG/5 ML, 75 ML BTL PO SCH ×2 (09:52→21:00)
[2021-09-27] MEDS: METOPROLOL TARTRATE 25 MG TABLET PO SCH ×2 (09:55→21:00)
[2021-09-27] MEDS: CHOLECALCIFEROL (VITAMIN D3) 2,000 UNIT TABLET PO SCH (09:55)
[2021-09-27] MEDS: ASCORBIC ACID 500 MG TABLET PO SCH (09:55)
[2021-09-27] MEDS: HEPARIN SODIUM,PORCINE 5,000 UNITS/ML VIAL SUBCUT SCH (09:57)
[2021-09-27] MEDS: SACUBITRIL/VALSARTAN 24 MG-26 MG 1 TABLET PO SCH (10:04)
[2021-09-27] MEDS: DECADRON 4 MG TABLET PO SCH (10:05)
[2021-09-27 10:22] LABS: POTASSIUM 5.8 mmol/L (3.5-5.1)
[2021-09-27 10:53] LABS: ERYTHROCYTE SEDIMENTATION RATE 2 MM/HR (0-20)
[2021-09-27] MEDS ORDERED: SODIUM POLYSTYRENE SULFONATE 15 GM/60 ML UDBTL PO ONE (11:15)
[2021-09-27] MEDS: NACL 0.9% 1,000 ML IV SCH (12:27)
[2021-09-27 12:29] VITALS: BP_SYST 149
[2021-09-27 16:00] VITALS: BP_SYST 148
--- NOTE | 2021-09-27 22:49 | NUR ---
PT in bed low anderson's position with mask on at 10 Liters, PT noted to be soiled with feces, Cleaned PT, mariano-care completed, and bed linen changed. PT upper extremities cold to the tough, right hand weeping with clear fluid. Sporadic bruising noted on bilateral upper extremities. PT repositioned to the left side with padding and pillow placed under right forearm for support. PT in position of comfort, with pillow. Will continue to monitor. Addendum: 09/28/21 at 0250 by [employer] administrative intern Bilateral restraints removed and PT distal upper extremities cold to touch.
--- NOTE | 2021-09-28 00:55 | NUR ---
PT in bed resting with eyes closed, repositioned to low semi anderson's position with pillow to offload. Right upper extremity cleaned, and elevated on pillow.
[2021-09-28] MEDS: HEPARIN SODIUM,PORCINE 5,000 UNITS/ML VIAL SUBCUT SCH ×3 (01:10→22:30)
[2021-09-28] MEDS: NACL 0.9% 1,000 ML IV SCH ×2 (02:45→20:24)
[2021-09-28 02:50] VITALS: BP_SYST 187
[2021-09-28 04:40] VITALS: BP_SYST 188
[2021-09-28] MEDS: CLINDAMYCIN 600 MG in D5W 50 ML IV SCH ×4 (06:00→22:31)
--- NOTE | 2021-09-28 06:15 | NUR ---
PT provided with mariano care, gown changed, right arm cleaned and elevated on pillow, PT repositioned on left side. No acute distress.
--- NOTE | 2021-09-28 07:07 | NUR ---
Change of shift report provided to dayshift RN, all questions answered
--- NOTE | 2021-09-28 08:00 | NUR ---
OPENING NOTES: PATIENT RESTING IN BED. BREATHING EVEN AND NO LABORED TO O2 AT 10L/ FACE MASK. FALL, SAFETY AND ASPIRATION MEASURES REINFORCED. BED LOCKED, ALARM ON AND IN LOWEST POSITION.
[2021-09-28 08:15] VITALS: BP_SYST 158
[2021-09-28] MEDS ORDERED: METOPROLOL TARTRATE 25 MG TABLET PO SCH (09:00)
[2021-09-28] MEDS: DECADRON 4 MG TABLET PO SCH (09:11)
[2021-09-28] MEDS: CHOLECALCIFEROL (VITAMIN D3) 2,000 UNIT TABLET PO SCH (09:12)
[2021-09-28] MEDS: ASCORBIC ACID 500 MG TABLET PO SCH (09:12)
[2021-09-28] MEDS: amLODIPine BESYLATE 5 MG TABLET PO SCH (09:13)
[2021-09-28] MEDS: METOPROLOL TARTRATE 25 MG TABLET PO SCH ×2 (09:14→21:00)
[2021-09-28] MEDS: SACUBITRIL/VALSARTAN 24 MG-26 MG 1 TABLET PO SCH ×2 (09:23→21:00)
[2021-09-28] MEDS: MUPIROCIN 2% TOPICAL OINTMENT 22 GM TP SCH ×2 (09:23→22:16)
[2021-09-28] MEDS: AMOXICILLIN/CLAVULANATE POTASSIUM 250 MG/5 ML, 75 ML BTL PO SCH ×2 (09:23→22:25)
[2021-09-28 09:40] LABS: BASOPHILS % (AUTO) 0.6 % (0.0-2.0); EOSINOPHILS % (AUTO) 0.4 % (0.0-4.0); HEMATOCRIT 42.2 % (36-48); HEMOGLOBIN 12.9 g/dL (12.0-16.0); LYMPHOCYTES # (AUTO) 0.3 K/uL (1.0-5.5); LYMPHOCYTES % (AUTO) 4.1 % (20.5-51.5); MEAN CORPUSCULAR HEMOGLOBIN 25 pg (27-31); MEAN CORPUSCULAR HGB CONC 31 % (32-36); MEAN CORPUSCULAR VOLUME 82 fL (79.0-98.0); MONOCYTES # (AUTO) 0.6 K/uL (0.0-1.0); MONOCYTES % (AUTO) 7.2 % (1.7-9.3); NEUTROPHILS # (AUTO) 6.8 K/uL (1.8-7.7); NEUTROPHILS % (AUTO) 87.7 % (40.0-70.0); PLATELET COUNT (AUTO) 135 K/uL (130-430); RED BLOOD CELL COUNT(AUTO) 5.17 MIL/uL (4.2-6.2); RED CELL DISTRIBUTION WIDTH 19.5 % (9.0-15.0); WHITE BLOOD COUNT (AUTO) 7.7 K/uL (4.8-10.8)
[2021-09-28 09:44] LABS: ALANINE AMINOTRANSFERASE 193 U/L (12-78); ALBUMIN 2.9 g/dL (3.4-4.8); ANION GAP 11 (5-15); ASPARTATE AMINOTRANSFERASE 43 U/L (10-37); CALCIUM 9.3 mg/dL (8.4-11.0); CHLORIDE 115 mmol/L (98-107); CREATININE 1.68 mg/dL (0.55-1.30); GLUCOSE 319 mg/dL (70-99); PHOSPHORUS 4.6 mg/dL (2.7-4.5); POTASSIUM 5.1 mmol/L (3.5-5.1); SODIUM SERUM 149 mmol/L (136-145); UREA NITROGEN, BLOOD 76 mg/dL (8-21)
[2021-09-28 10:22] VITALS: BP_SYST 188
--- NOTE | 2021-09-28 11:53 | NUR ---
CRITICAL INFORMED RN OF + COVTWAN RAPID
[2021-09-28 12:00] VITALS: BP_SYST 157
[2021-09-28] MEDS: INSULIN REGULAR, HUMAN 100 UNITS/ML, 10 ML VIAL (humuLIN R) SUBCUT PRN ×3 (12:02→22:39)
--- NOTE | 2021-09-28 12:21 | NUR ---
Discharge Planning: DCP faxed to [facility]/A [phone] pt is covid-positive. DCP to follow up. Addendum: 09/28/21 at 1534 by Parul Gray DP to [facility] [phone] pt is covid-positive accepted pt to [facility]. DCP also sent to [facility] [phone]. DCP to follow up Addendum: 09/28/21 at 1623 by Parul Gray DP [facility]/A [phone] pt is covid-positive accepted pt to [facility]. DCP followed up with [facility] [phone] pt accepted to [facility]. DCP made CM aware.
[2021-09-28 12:23] LABS: ERYTHROCYTE SEDIMENTATION RATE 2 MM/HR (0-20)
[2021-09-28] MEDS: CLINDAMYCIN HCL 150 MG CAPSULE PO SCH ×2 (12:26→18:31)
--- NOTE | 2021-09-28 14:20 | NUR ---
CM: SPOKE WITH DR. GUTIERREZ REGARDING SNF PLACEMENT, ACKNOWLEDGED [facility] ACCEPTING FACILITY, DR. GUTIERREZ RESPONDED [facility], PT INFORMATION FAXED OVER, DISCHARGE EXPECTED FOR TOMORROWS DATE.
--- NOTE | 2021-09-28 15:26 | NUR ---
CM: CALLED [facility], SPOKE TO ESTELA, REQUEST BED FOR COVID PT, WAS TOLD NO RED ZONE, NOT ACCEPTING COVID PT AT THIS TIME.
[2021-09-28 16:38] VITALS: BP_SYST 160
--- NOTE | 2021-09-28 19:09 | NUR ---
CLOSING NOTES: PATIENT RESTING IN BED. BREATHING EVEN AND NON LABORED TO O2 AT 10L/ FACEMASK. NGT INFUSING WELL. NEEDS MET THROUGHOUT SHIFT.
[2021-09-29 00:37] VITALS: BP_SYST 156
[2021-09-29] MEDS: CLINDAMYCIN HCL 150 MG CAPSULE PO SCH ×3 (03:52→12:13)
[2021-09-29 04:30] VITALS: BP_SYST 155
[2021-09-29] MEDS: CLINDAMYCIN 600 MG in D5W 50 ML IV SCH (05:53)
[2021-09-29] MEDS: INSULIN REGULAR, HUMAN 100 UNITS/ML, 10 ML VIAL (humuLIN R) SUBCUT PRN (06:37)
--- NOTE | 2021-09-29 07:35 | NUR ---
OPENING NOTE PT in bed, resting with eyes closed. Responsive to deep stimuli. Mask in place, oxygen 10L, oxygenation 94%. Breaths are deep, chest rise even. NG tube in place running prescribed fluids. No IV site at this time. Bandage on left knee clean, dry, and intact. Generalized pitting edema, extremities elevated for optimal fluid return. No signs of pain at this time using the FLACC scale. Safety checks made.
[2021-09-29 08:00] VITALS: BP_SYST 158
[2021-09-29] MEDS: CHOLECALCIFEROL (VITAMIN D3) 2,000 UNIT TABLET PO SCH (09:09)
[2021-09-29] MEDS: amLODIPine BESYLATE 5 MG TABLET PO SCH (09:09)
[2021-09-29] MEDS: ASCORBIC ACID 500 MG TABLET PO SCH (09:09)
[2021-09-29] MEDS: METOPROLOL TARTRATE 25 MG TABLET PO SCH (09:10)
[2021-09-29] MEDS: MUPIROCIN 2% TOPICAL OINTMENT 22 GM TP SCH (09:11)
[2021-09-29] MEDS: HEPARIN SODIUM,PORCINE 5,000 UNITS/ML VIAL SUBCUT SCH (09:15)
[2021-09-29] MEDS: AMOXICILLIN/CLAVULANATE POTASSIUM 250 MG/5 ML, 75 ML BTL PO SCH (09:19)
[2021-09-29] MEDS: SACUBITRIL/VALSARTAN 24 MG-26 MG 1 TABLET PO SCH (09:20)
[2021-09-29 09:22] LABS: BASOPHILS % (AUTO) 0.3 % (0.0-2.0); EOSINOPHILS % (AUTO) 0.2 % (0.0-4.0); HEMATOCRIT 42.4 % (36-48); HEMOGLOBIN 12.6 g/dL (12.0-16.0); LYMPHOCYTES # (AUTO) 0.2 K/uL (1.0-5.5); LYMPHOCYTES % (AUTO) 2.9 % (20.5-51.5); MEAN CORPUSCULAR HEMOGLOBIN 24 pg (27-31); MEAN CORPUSCULAR HGB CONC 30 % (32-36); MEAN CORPUSCULAR VOLUME 82 fL (79.0-98.0); MONOCYTES # (AUTO) 0.5 K/uL (0.0-1.0); MONOCYTES % (AUTO) 6.4 % (1.7-9.3); NEUTROPHILS # (AUTO) 7.5 K/uL (1.8-7.7); NEUTROPHILS % (AUTO) 90.2 % (40.0-70.0); PLATELET COUNT (AUTO) 105 K/uL (130-430); RED BLOOD CELL COUNT(AUTO) 5.18 MIL/uL (4.2-6.2); RED CELL DISTRIBUTION WIDTH 19.3 % (9.0-15.0); WHITE BLOOD COUNT (AUTO) 8.3 K/uL (4.8-10.8)
--- NOTE | 2021-09-29 09:29 | NUR ---
CM: PT ACCEPTED INTO [facility], SPOKE WITH DAUGHTER, SHE IS IN AGREEMENT, TALK WITH DR. GUTIERREZ AGREES WELL, DISCHARGE ORDER GIVEN, PT WILL GO TO [facility], PICK-UP TIME WILL BE @ 1030A WITH [facility].
--- NOTE | 2021-09-29 10:00 | NUR ---
SPOKE TO DAUGHTER ABOUT TRANSFER Spoke to daughter, Merline, and acknowledged that she is aware that her mother is being transferred to [place] today.
--- NOTE | 2021-09-29 10:14 | NUR ---
REPORT GIVEN TO SREE HALE REPORT GIVEN TO SREE HALE, OF [facility].
[2021-09-29 10:17] VITALS: BP_SYST 148
[2021-09-29 10:32] LABS: ALANINE AMINOTRANSFERASE 138 U/L (12-78); ALBUMIN 2.7 g/dL (3.4-4.8); ANION GAP 8 (5-15); ASPARTATE AMINOTRANSFERASE 30 U/L (10-37); CALCIUM 9.3 mg/dL (8.4-11.0); CHLORIDE 117 mmol/L (98-107); GLUCOSE 284 mg/dL (70-99); PHOSPHORUS 3.9 mg/dL (2.7-4.5); SODIUM SERUM 151 mmol/L (136-145); TOTAL BILIRUBIN 1.1 mg/dL (0.0-1.0); UREA NITROGEN, BLOOD 71 mg/dL (8-21)
[2021-09-29] MEDS: DECADRON 4 MG TABLET PO SCH (10:50)
[2021-09-29 12:42] VITALS: BP_SYST 156
--- NOTE | 2021-09-29 14:19 | NUR ---
PT TRANSFERRED Report given to [facility] EMT at 1405. Transfer packet with Transfer Orders and Medication Reconciliation form given to EMT with report. Exitcare provided. [facility] ID band removed, replaced with ID band with pt's name and . NG tube in place, simple mask on 5L oxygen in place. All belongings sent with patient. Patient left floor via gurney escorted by EMT in no distress. Transferred to [facility], report given to Williams HALE.
== END 2021-09-29 14:20 | DRG 602 ==
LOC: SED 02:38 → SMU 04:11
PROVIDERS: ADMIT General Practice; ATTEND General Practice
PROC: XW033E5 Introduction of Remdesivir Anti-infective into Peripheral Vein, Percutaneous Approach, New Technology Group 5 (ICD-10-PCS; 2021-09-22)
PROC: 5A09457 Assistance with Respiratory Ventilation, 24-96 Consecutive Hours, Continuous Positive Airway Pressure (ICD-10-PCS; principal; 2021-09-23)
DX: L03.116 Cellulitis of left lower limb (principal); U07.1 COVID-19; N17.0 Acute kidney failure with tubular necrosis; J12.82 Pneumonia due to coronavirus disease 2019; E44.1 Mild protein-calorie malnutrition; I50.42 Chronic combined systolic (congestive) and diastolic (congestive) heart failure; I42.0 Dilated cardiomyopathy; I48.20 Chronic atrial fibrillation, unspecified; Z66 Do not resuscitate; E87.5 Hyperkalemia; I11.0 Hypertensive heart disease with heart failure; Z68.31 Body mass index [BMI] 31.0-31.9, adult; L02.416 Cutaneous abscess of left lower limb; E11.9 Type 2 diabetes mellitus without complications; E66.01 Morbid (severe) obesity due to excess calories; Z88.6 Allergy status to analgesic agent; Z79.01 Long term (current) use of anticoagulants; Z79.4 Long term (current) use of insulin; Z79.899 Other long term (current) drug therapy; Z90.12 Acquired absence of left breast and nipple; Z85.3 Personal history of malignant neoplasm of breast
CPT/HCPCS: 36415; 71045; 73560-TC; 76770; 80048; 80053; 82728; 82803-TC; 82962; 83036; 83605; 83615; 83735; 83880; 84100; 85007; 85025; 85027; 85379; 85384; 85610-TC; 85651-TC; 85730-TC; 86140; 87040; 87070-TC; 93005; 93306; 94660; 94760; 96374; 96375; 99285; J0456; J0696; J1644; J1815; J2060; J3370; J3490; J7050; J7060; J8540